=== PATIENT | male | born 1985 | race African-American/Black ===

== ENCOUNTER 2024-05-19 21:56 | Emergency (ER) | payer MEDICAID ==
[~2024-05-19] VITALS: Ht 170.2 cm; Wt 74.0 kg
[2024-05-19 22:13] VITALS: TEMP 98; O2SAT 100
[2024-05-19] MEDS: ONDANSETRON HCL 4MG/2ML INJ IV STA (23:48)
[2024-05-19] MEDS: MORPHINE SULFATE 4 MG/ML INJ (FOR IV/IM USE) IV STA (23:48)
[2024-05-19] MEDS: MAGNESIUM/ALUMINUM HYDROXIDE/SIMETHICONE 30ML UDC PO STA (23:48)
[2024-05-19] MEDS: PANTOPRAZOLE SODIUM 40 MG/VIAL IV STA (23:48)
[2024-05-19] MEDS: SODIUM CHLORIDE 0.9% 1,000 ML IV ONE (23:48)
[2024-05-20 00:01] LABS: BASOPHILS % 0.7 % (0.0-2.0); EOSINOPHILS % 1.2 % (0.0-5.0); HEMATOCRIT. 45.9 % (42.0-52.0); HEMOGLOBIN. 16.1 g/dL (14.0-18.0); LYMPHOCYTES % 12.6 % (20.0-50.0); MEAN CORPUSCULAR HEMOGLOBIN 30.3 pg (28.0-32.0); MEAN CORPUSCULAR VOLUME 86.4 fL (80.0-94.0); MEAN PLATELET VOLUME 8.9 fl (7.4-10.4); MONOCYTES % 5.7 % (2.0-8.0); NEUTROPHILS % 79.8 % (40.0-76.0); PLATELET 147 x1000/uL (130-400); RED BLOOD CELL COUNT 5.31 mill/uL (4.7-6.1); RED CELL DISTRIBUTION WIDTH 13.9 % (11.6-14.6)
[2024-05-20 00:05] LABS: CHLORIDE 105 mEq/L (98-107); POTASSIUM 3.1 mEq/L (3.5-5.1); SODIUM 139 mEq/L (136-145)
[2024-05-20 00:06] LABS: CALCIUM 9.4 mg/dL (8.7-10.4); CARBON DIOXIDE 26 mEq/L (21-32)
[2024-05-20 00:10] LABS: LACTIC ACID 2.8 mmol/L (0.4-2.0)
[2024-05-20 00:11] LABS: GLUCOSE 104 mg/dL (70-105); UREA NITROGEN BLOOD 15 mg/dL (9-23)
[2024-05-20 00:13] LABS: ALANINE AMINOTRANSFERASE 15 IU/L (10-49); ALBUMIN 4.3 g/dL (3.2-4.8); ASPARTATE AMINOTRANSFERASE 26 IU/L (<34); BILIRUBIN DIRECT 0.2 mg/dL (<=3.0); BILIRUBIN TOTAL 0.9 mg/dL (0.1-1.0); PROTEIN TOTAL 6.8 g/dL (6.0-8.3)
[2024-05-20] MEDS ORDERED: ONDA4TAB50 MT (03:17)
[2024-05-20] MEDS ORDERED: PROT20 MT (03:17)
[2024-05-20 03:32] VITALS: BP 115/55; PULSE 61; RESP 16; O2SAT 98
== END 2024-05-20 03:39 | disposition home or self-care (01) ==
LOC: ER 21:56
DX: K29.70 Gastritis, unspecified, without bleeding (principal)
CPT/HCPCS: 99285; 96365; 76705; 96366; 96375; 80076; 80048; 83605; 83690; 85025; 36415; J2405; J2470; J2270; J7030